=== PATIENT | male | born 1965 | race Caucasian/White ===

== ENCOUNTER 2025-01-24 15:17 | Emergency (ER) | payer SELFPAY ==
[2025-01-24 15:48] LABS: Glucose, Urine (Dipstick) Normal (Negative); Leukocyte Negative (Negative); Protein, Urine (Dipstick) Negative (Neg-Trace); Specific Gravity, Urine 1.030 (1.005-1.030)
[2025-01-24 16:17] LABS: #Basophils 0.04 10x3/uL (0.0-0.2); #Eosinophils 0.20 10x3/uL (0.0-0.5); #Monocytes 0.48 10x3/uL (0.0-1.1); #Neutrophils 3.78 10x3/uL (1.5-8.4); %Basophils 0.6 % (0.0-2.0); %Eosinophils 3.0 % (0.0-6.0); %Lymphocytes 32.1 % (18.0-47.0); %Monocytes 7.2 % (0.0-10.0); %Neutrophils 56.9 % (40.0-75.0); Hematocrit 42.2 % (38.8-50.0); Hemoglobin 14.3 g/dL (13.5-17.5); Mean Corpuscular Hemoglobin 31.4 pg (27.0-33.0); Mean Corpuscular Volume 92.5 fL (81.2-95.1); Platelet Count 252 10x3/uL (150-450); Red Blood Cell (RBC) Count 4.56 10x6/uL (4.32-5.72); White Blood Cell (WBC) Count 6.64 10x3/uL (3.5-10.5)
[2025-01-24 16:23] LABS: Bacteria/HPF Rare-Few HPF (None Seen); CAUTI Indications for Culture Dysuria,urgency,freq; WBC/HPF 0-3 HPF (0-3)
[2025-01-24 16:25] LABS: Urine Culture Reflex No No
[2025-01-24 16:36] LABS: ALT (SGPT) 23 U/L (Less than 45); AST (SGOT) 22 U/L (11-34); Albumin 4.1 g/dL (3.1-4.5); Alkaline Phosphatase 66 U/L (40-110); Anion Gap 14 mmol/L (10-20); BUN (Urea Nitrogen) 14 mg/dL (8.4-25.7); Bilirubin, Total 0.6 mg/dL (0.3-1.2); Calc. Creatinine Clearance 0 mL/min (70-130); Calcium 9.7 mg/dL (7.8-10.44); Carbon Dioxide 20 mmol/L (22-29); Chloride 107 mmol/L (98-107); Globulin 3.4 g/dL (2.4-3.5); Glucose 93 mg/dL (70-105); Potassium 3.9 mmol/L (3.5-5.1); Sodium 137 mmol/L (136-145)
== END 2025-01-24 18:00 | disposition home or self-care (01) ==
LOC: CSHERS 15:17
DX: R31.9 Hematuria, unspecified (principal); I25.10 Atherosclerotic heart disease of native coronary artery without angina pectoris; I25.2 Old myocardial infarction; F17.210 Nicotine dependence, cigarettes, uncomplicated; Z95.5 Presence of coronary angioplasty implant and graft; Z95.1 Presence of aortocoronary bypass graft
CPT/HCPCS: 36415; 74176; 80053; 81001; 85025